=== PATIENT | female | born 1990 | race Caucasian/White ===

== ENCOUNTER 2019-07-24 06:36 | Emergency (ER) | payer MEDICAID ==
[2019-07-24 06:58] LABS: ABSOLUTE BASOPHILS # (AUTO) 0.1 10^3/uL (0.0-0.2); ABSOLUTE EOSINOPHILS # (AUTO) 0.5 10^3/uL (0.0-0.6); ABSOLUTE LYMPHOCYTES (AUTO) 1.5 10^3/uL (0.5-4.7); ABSOLUTE MONOCYTES (AUTO) 0.4 10^3/uL (0.1-1.4); ABSOLUTE NEUT (AUTO) 3.5 10^3/uL (1.7-8.2); EOSINOPHILS % (AUTO) 7.8 % (0-6); HEMATOCRIT 43.3 % (36.0-47.0); HEMOGLOBIN 15.1 g/dL (12.0-15.5); LYMPHOCYTES % (AUTO) 25.7 % (13-45); MEAN CORPUSCULAR HEMOGLOBIN 30.5 pg (27.0-33.4); MEAN CORPUSCULAR HGB CONC 34.8 g/dL (32.0-36.0); MEAN CORPUSCULAR VOLUME 88 fl (80-97); MONOCYTES % (AUTO) 6.4 % (3-13); PLATELET COUNT 228 10^3/uL (150-450); RED BLOOD COUNT 4.95 10^6/uL (3.72-5.28); RED CELL DISTRIBUTION WIDTH 13.4 % (11.5-14.0); SEGMENTED NEUTROPHILS % (AUTO) 59.1 % (42-78); TOTAL CELLS COUNTED % (AUTO) 100 %; WHITE BLOOD COUNT 5.8 10^3/uL (4.0-10.5)
[2019-07-24 07:01] LABS: APPEARANCE,URINE CLOUDY; BILIRUBIN,URINE NEGATIVE (NEGATIVE); COLOR,URINE YELLOW; GLUCOSE, URINE NEGATIVE (NEGATIVE); KETONES,URINE NEGATIVE (NEGATIVE); LEUKOCYTE ESTERASE,URINE MODERATE (NEGATIVE); NITRITE,URINE NEGATIVE (NEGATIVE); PROTEIN,URINE NEGATIVE (NEGATIVE); URINE SPECIFIC GRAVITY 1.024; UROBILINOGEN,URINE NEGATIVE mg/dL (<2.0)
[2019-07-24 07:39] LABS: ALBUMIN 4.5 g/dL (3.5-5.0); ALKALINE PHOSPHATASE 38 U/L (38-126); ANION GAP 9 (5-19); ASPARTATE AMINO TRANSFERASE 20 U/L (14-36); BILIRUBIN,TOTAL 0.3 mg/dL (0.2-1.3); BLOOD UREA NITROGEN 11 mg/dL (7-20); CALCIUM 9.2 mg/dL (8.4-10.2); CARBON DIOXIDE 22 mmol/L (22-30); CHLORIDE 106 mmol/L (98-107); GLUCOSE 100 mg/dL (75-110); POTASSIUM 3.9 mmol/L (3.6-5.0); TOTAL PROTEIN 7.2 g/dL (6.3-8.2)
[2019-07-24] MEDS ORDERED: ACETAMINOPHEN 325 MG TABLET PO ONE (08:57)
--- NOTE | 2019-07-24 10:19 | RADIOLOGY REPORT (SQ) ---
EXAM DESCRIPTION: U/S OB TRANSVAGINAL W/O DOP IMAGES COMPLETED DATE/TIME: 07/24/2019 10:05 am REASON FOR STUDY: vaginal bleed COMPARISON: None. TECHNIQUE: Transvaginal static and realtime grayscale images acquired of the pelvis. Additional arthur cted spectral and color Doppler images recorded. All images stored on PACs. CLINICAL AGE: 6 weeks 6 days. BHC,150 LIMITATIONS: None. FINDINGS: UTERUS: No visualized intrauterine . RIGHT ADNEXA: Normal ovary with normal vascular flow. There is a less than 1 cm right ovarian cyst. No adnexal free fluid. No adnexal masses. LEFT ADNEXA: Normal ovary with normal vascular flow. No adnexal free fluid. No adnexal masses. FREE FLUID: None. OTHER: Nabothian cyst is demonstrated. IMPRESSION: NO VISUALIZED INTRA- OR EXTRAUTERINE . bHCG LEVEL TOO LOW TO EXPECT VISUALIZATION OF . ECTOPIC CANNOT BE EXCLUDED. FOLLOW-UP ULTRASOUND AND SERIAL BHCG LEVELS STRONGLY RECOMMENDED TO ACCURATELY ASSESS STATU S. TECHNICAL DOCUMENTATION: JOB ID: [id number] 2010 [employer]- All Rights Reserved Reading location - IP/workstation name: [email or web address]
--- NOTE | 2019-07-24 11:38 | ER Document Report ---
Entered by JUAN TAVAREZ SCRIBE 07/24/19 0715 Acting as scribe for:AMANUEL TUCKER MD ED General - General Chief Complaint: Vaginal Bleeding Stated Complaint: VAGINAL BLEEDING Time Seen by Provider: 07/24/19 06:55 Information source: Patient Notes: This 29-year-old female ( P:1 A:1) presents to the emergency department complaining of vaginal bleeding that began this morning. Patient is 6 weeks , has been taking [id number] vitamins and her last menstrual period was 07/07/2019. Patient explains that she went to the health department for an initial assessment and they instructed her to come to the emergency department if she had any bleeding during her . Patient reports associated cramping. Patient states that this morning, she urinated and noticed "some pink drops". Patient states that she went to the bathroom 20 minutes later and at that time she noticed "bright red when I wiped". Patient denies blood clots, throat pain, abdominal pain, nausea, vomiting, diarrhea, cough and fever. Patient states that her next appointment with the health department is in 6 days. Past Medical History - General Information source: Patient - Social History Smoking Status: Current Every Day Smoker Cigarette use (# per day): Yes Chew tobacco use (# tins/day): No Frequency of alcohol use: None Drug Abuse: None Lives with: Spouse/Significant other Family History: Reviewed & Not Pertinent - Medical History Medical History: Negative Surgical Hx: Negative Review of Systems - Review of Systems Constitutional: See HPI. denies: Fever EENT: See HPI. denies: Throat pain Cardiovascular: No symptoms reported Respiratory: See HPI. denies: Cough Gastrointestinal: See HPI. denies: Abdominal pain, Diarrhea, Nausea, Vomiting Genitourinary: No symptoms reported Female Genitourinary: See HPI, Last menstrual period, , Vaginal bleeding Musculoskeletal: No symptoms reported Skin: No symptoms reported Hematologic/Lymphatic: No symptoms reported Neurological/Psychological: No symptoms reported -: Yes All other systems reviewed and negative Physical Exam - Vital signs Vitals: Temp Pulse Resp BP Pulse Ox 98.7 F 98 16 119/78 100 07/24/19 06:40 07/24/19 06:40 07/24/19 06:40 07/24/19 06:40 07/24/19 06:40 - Notes Notes: Physical Exam: General: Alert, appears well. HEENT: Normocephalic. Atraumatic. PERRL. Extraocular movements intact. Oropharynx clear. Neck: Supple. Non-tender. Respiratory: No respiratory distress. Clear and equal breath sounds bilaterally. Cardiovascular: Regular rate and rhythm. Abdominal: Normal Inspection. Non-tender. No distension. Normal Bowel Sounds. Back: No gross abnormalities. Extremities: Moves all four extremities. Upper extremities: Normal inspection. Normal ROM. Lower extremities: Normal inspection. No edema. Normal ROM. Neurological: Normal cognition. AAOx4. Normal speech. Psychological: Normal affect. Normal Mood. Skin: Warm. Dry. Normal color. Course - Re-evaluation Re-evalutation: 07/24/19 11:33 Patient awaiting discharge at this time. Patient reports that she had another vaginal bleeding while in the department. Patient is states her pain is not excessive at this time. 07/24/19 11:36 Patient's blood type is B+ therefore no need for RhoGam. - Vital Signs Vital signs: Temp Pulse Resp BP Pulse Ox 98.2 F 72 16 115/74 100 07/24/19 09:59 07/24/19 09:59 07/24/19 06:40 07/24/19 09:59 07/24/19 09:59 07/24/19 11:34 Vital signs stable - Laboratory Result Diagrams: 07/24/19 06:48 07/24/19 06:48 Laboratory results interpreted by me: 07/24/19 07/24/19 07/24/19 06:48 06:48 06:48 Eos % (Auto) 7.8 H Sodium 136.9 L Beta HCG, Quant 1150.00 H Urine Blood LARGE H Ur Leukocyte Esterase MODERATE H Urine Ascorbic Acid 40 H Urine HCG, Qual 07/24/19 06:48 Eos % (Auto) Sodium Beta HCG, Quant Urine Blood Ur Leukocyte Esterase Urine Ascorbic Acid Urine HCG, Qual POSITIVE H 07/24/19 11:34 Patient has a quantitative beta-hCG of 1150 which is a low number compared to her dates of knowing that she is based on her menstrual cycle showing that she should be 6 weeks . Discussed with patient that the most likely her vaginal bleeding along with this low quantitative beta-hCG may represent that she is had a miscarriage. Nonetheless she has been explained to follow-up with the health department in 2 days to have a retest on her blood test to determine if it is positive in terms of increasing or doubling in the next 2 days or decreased. - Diagnostic Test Radiology reviewed: Image reviewed, Reports reviewed Radiology results interpreted by me: 07/24/19 11:35 Ultrasound shows no signs of any intrauterine or extrauterine . Discharge - Discharge Clinical Impression: Threatened miscarriage in early Disposition: HOME, SELF-CARE Instructions: Threatened Miscarriage ([facility] Referrals: YON BENITES MD [ACTIVE STAFF] - 07/26/19 I personally performed the services described in the documentation, reviewed and edited the documentation which was dictated to the scribe in my presence, and it accurately records my words and actions.
[2019-07-24 11:44] VITALS: BP 112/64
[2019-07-24 12:58] LABS: CHLAM PCR NOT DETECTED (NOT DETECT)
== END 2019-07-24 11:44 | disposition home or self-care (01) ==
LOC: ER 06:36
DX: O20.0 Threatened abortion (principal); O26.891 Other specified pregnancy related conditions, first trimester; R10.9 Unspecified abdominal pain; O99.331 Smoking (tobacco) complicating pregnancy, first trimester; Z3A.01 Less than 8 weeks gestation of pregnancy
CPT/HCPCS: 99284; 86900; 86901; 36415; 86850; 84702; 85025; 81025; 80053; 81001; 87491; 87591; 76817; J3490